=== PATIENT | female | born 1965 | race African-American/Black ===

== ENCOUNTER 2016-11-02 13:04 | Emergency (ER) | payer OTHER, MEDICARE ==
[~2016-11-02] VITALS: Wt 93.0 kg
[~2016-11-02 13:04] MED LIST: ABAC1TAB12 PO; ALBU8.5H3 INH; ASPI-664 PO; AZIT250T94 PO; BEN25 PO; CHOL100062 PO; CITA10TA72 PO; LEVO200T45 PO; LORA-186 PO; OMEG-135 PO; PRED20TA PO; PRENAT PO; SELE200T2 PO
--- NOTE | 2016-11-02 14:23 | RADRPT ---
PROCEDURE: XR left toes. CLINICAL INDICATION: Left fourth toe pain. TECHNIQUE: 3 views of the left toes are available for review COMPARISON: No prior studies are available for comparison. FINDINGS: There is an oblique fracture through the proximal phalanx of the fourth toe. There is no intra-angela cular extension. Diffuse soft tissue swelling seen. Remainder of the bones appear intact.. IMPRESSION: 1. Oblique fracture of the left fourth proximal phalanx. RPTAT: QQ .Sal Neff MD, Date Time Electronically viewed and signed by .Sal Neff MD, on 11/02/2016 14:23 .L/
[2016-11-02] MEDS ORDERED: NAPR-260 PO (14:33)
--- NOTE | 2016-11-02 16:14 | ERD ---
ER Documentation Chief Complaint Date/Time DATE: 11/02/16 TIME: 16:09 Chief Complaint STUBBED 4TH DIGIT OF LEFT FOOT [id number] PAIN WORSE TODAY HPI This patient is a 51-year-old female presenting to the emergency department for pain of her left fourth toe after slamming it into a piece of ocean coral while on vacation. Symptoms are worse with movement. Symptoms are worse today. She is taken no medication for relief of symptoms. No other symptoms or injuries to report currently. ROS All systems reviewed and are negative except as per history of present illness. Medications Home Meds Active Scripts Naproxen* (Naprosyn*) 500 Mg Tablet, 500 MG PO BID Y for PAIN AND/OR INFLAMMATION, #30 TAB Prov:ROSEANN HERNÁNDEZ PA-C 11/02/16 Azithromycin* (Zithromax*) 250 Mg Tablet, 250 MG PO .ZPACK DIRECTED, #6 TAB TAKE 500 MG (2 TABS) THE FIRST DAY THEN 250 MG (1 TAB) DAYS 2-5 Prov:ANA KENNEDY DO 06/16/15 Prednisone* (Prednisone*) 20 Mg Tab, 60 MG PO DAILY for 5 Days, TAB Prov:ANA KENNEDY DO 06/16/15 Albuterol Sulfate* (Proair HFA*) 8.5 Gm Hfa.aer.ad, 2 PUFF INH Q4, #1 INHALER Prov:ANA KENNEDY DO 06/16/15 Reported Medications Selenium* (Selenimin*) 200 Mcg Tablet, 200 MCG PO DAILY, TAB 06/16/15 Fish Oil* (Fish Oil*) 1,000 Mg Cap, 1000 MG PO BID, CAP 06/16/15 Diphenhydramine Hcl* (Benadryl*) 25 Mg Cap, 25 MG PO QHS Y for SLEEP, CAP 06/16/15 Multivit/Min/Fol Ac/Iron/Pren* ( S*) 1 Tab Tab, 1 TAB PO DAILY, TAB 06/16/15 Abacavir/Dolutegravir/Lamivudi (Triumeq Tablet) 1 Each Tablet, 1 EACH PO DAILY, TAB 06/16/15 Loratadine* (Claritin*) 10 Mg Tablet, 10 MG PO DAILY, TAB 06/16/15 Levothyroxine Sodium* (Levoxyl*) 200 Mcg Tablet, 200 MCG PO BEFORE BREAKFAST, # 30 TAB 06/16/15 Citalopram Hydrobromide* (Celexa*) 10 Mg Tablet, 10 MG PO DAILY, #30 TAB 06/16/15 Cholecalciferol* (Vitamin D3*) 1,000 Unit Tablet, 1000 UNIT PO DAILY, TAB 06/16/15 Aspirin (Low Dose Aspirin) 81 Mg Tablet.dr, 81 MG PO DAILY 06/16/15 Allergies Allergies: Coded Allergies: No Known Allergy (Unverified , 06/16/15) PMhx/Soc History of Surgery: Yes (THYROID SURGERY) Anesthesia Reaction: No Hx Neurological Disorder: No Hx Respiratory Disorders: No Hx Cardiac Disorders: No Hx Psychiatric Problems: No Hx Miscellaneous Medical Probl: Yes (HIV) Hx Alcohol Use: Yes Hx Substance Use: No Hx Tobacco Use: No Smoking Status: Never smoker FmHx Noncontributory for chief complaint Physical Exam Vitals Vital Signs Date Time Temp Pulse Resp B/P Pulse Ox O2 Delivery O2 Flow Rate FiO2 11/02/16 13:11 97.5 75 18 135/90 99 Physical Exam Const: Nontoxic, well-appearing female resting in no acute distress. Head: Atraumatic Eyes: Normal Conjunctiva ENT: Normal External Ears, Nose and Mouth. Neck: Full range of motion..~ No meningismus. Resp: Clear to auscultation bilaterally Cardio: Regular rate and rhythm, no murmurs Abd: Soft, non tender, non distended. Normal bowel sounds Skin: No petechiae or rashes Back: No midline or flank tenderness Ext: There is mild edema with associated tenderness palpation of the fourth toe on the left foot. Neur: Awake and alert Psych: Normal Mood and Affect Procedures/MDM 51-year-old female presenting to the emergency department for trauma to her left fourth toe. On physical examination there is some tenderness to palpation and edema. X-ray was positive for fracture. Patient was denis taped in the department. She was given a orthosis you with recommendation of close follow- up with orthopedics. The patient was neurovascularly intact post splint and orthosis application. Questions and concerns were addressed. The patient was stable for outpatient management with a prescription for naproxen. Strict ER return precautions discussed. Close follow-up with the primary care physician advised. Departure Diagnosis: Primary Impression: Fracture of toe of left foot Condition: Fair Patient Instructions: Finger and Toe Fractures (Broken Finger or Toe) Referrals: [facility] 7 a.m.- 11 p.m. Every Day of the Week NO APPOINTMENT OR AUTHORIZATION NEEDED [facility] Hours: Mon-Fri 9:00 AM - 5:00 PM Additional Instructions: Follow up with your PCP within the next 1-3 days for a repeat evaluation and a possible referral to a specialist, if required. Return the the emergency department immediately if symptoms worsen or change. If you have any questions regarding medications, ask your pharmacist or us before you leave. If any adverse reactions, occur while taking your medications, discontinue the treatment and return to the emergency department immediately. If any new or worsening symptoms, uncontrolled fevers, or other unexplained symptoms occur, return to the emergency department immediately. Take your medications as directed, and complete the entire course of treatment. ROSEANN HERNÁNDEZ PA-C Nov 02, 2016 16:14
== END 2016-11-02 14:59 | disposition home or self-care (01) ==
LOC: FTE 13:04
DX: S92.512A Displaced fracture of proximal phalanx of left lesser toe(s), initial encounter for closed fracture (principal); W23.1XXA Caught, crushed, jammed, or pinched between stationary objects, initial encounter; Y92.89 Other specified places as the place of occurrence of the external cause; Z79.82 Long term (current) use of aspirin
CPT/HCPCS: 73660